=== PATIENT | female | born 1950 | race Caucasian/White ===

== ENCOUNTER 2017-12-20 13:52 | Outpatient (CLI) | payer MEDICARE, OTHER ==
--- NOTE | 2017-12-20 14:46 | RAD ---
TWO VIEWS OF THE CHEST: COMPARISON: None. HISTORY: Dyspnea. FINDINGS: Two views of the chest show a normal-size cardiomediastinal silhouette. The patient is status post C ABG. There is no evidence of consolidation, mass, or pleural effusion. Degenerative changes are see n in the spine. Bone anchors are seen in the right humerus. IMPRESSION: No evidence of acute cardiopulmonary disease. POS: [facility]
== END 2017-12-20 13:53 | disposition home or self-care (01) ==
LOC: RAD 13:52
PROVIDERS: ATTEND Internal Medicine Pulmonary Disease
DX: R06.00 Dyspnea, unspecified (principal)
CPT/HCPCS: 71046

== ENCOUNTER 2019-09-25 09:49 | Outpatient (CLI) | payer MEDICARE ==
--- NOTE | 2019-09-25 11:54 | BD ---
DEXA BONE DENSITY STUDY: Date: 09/25/2019 HISTORY: Postmenopausal. FINDINGS: Lumbar Spine: BMD (g/cm2) L1 0.766 T-Score: -2.0 L2 0.856 T-Score: -1.6 L3 1.076 T-Score: -0.1 L4 1.306 T-Score: +2.2 Total 0.997 T-Score: -0.5 Left Femoral Neck: 0.589 T-Score: -2.3 Total Femur: 0.733 T-Score: -1.7 IMPRESSION: 1. Osteopenia of the left femoral neck. Values border on the osteoporosis range. 2. Normal bone mineral density of the lumbar spine. 3. The 10 year fracture for major osteoporotic fracture is 16% and for a hip fracture is 4.1%. These fracture probabilities are calculated for an untreated patient. POS: [facility]
--- NOTE | 2019-09-25 12:00 | ULT ---
ABDOMINAL AORTIC ULTRASOUND: Date: 09/25/2019 HISTORY: Abdominal aortic aneurysm screening. FINDINGS: The abdominal aorta is normal in caliber. Proximal aorta measures 1.3 cm in AP dimension, mid aorta m easures 1.4 cm, and distal aorta measures 1.4 cm. Atherosclerotic change is noted. Iliac arteries are not well visualized due to gas. IMPRESSION: No evidence of aortic aneurysm. POS: [facility]
== END 2019-09-25 09:50 | disposition home or self-care (01) ==
LOC: BICMAMMO 09:49
PROVIDERS: ATTEND Internal Medicine
DX: Z13.820 Encounter for screening for osteoporosis (principal); Z13.6 Encounter for screening for cardiovascular disorders; N95.9 Unspecified menopausal and perimenopausal disorder; M85.89 Other specified disorders of bone density and structure, multiple sites
CPT/HCPCS: 76775; 77080

== ENCOUNTER 2021-07-04 11:06 | Outpatient (CLI) | payer MEDICARE | END 2021-07-04 11:07 | disposition home or self-care (01) | LOC: BICMAMMO 11:06 | PROVIDERS: ATTEND Internal Medicine | DX: Z12.31 Encounter for screening mammogram for malignant neoplasm of breast (principal); Z91.89 Other specified personal risk factors, not elsewhere classified | CPT/HCPCS: 77063; 77067 ==

== ENCOUNTER 2022-12-11 12:49 | Outpatient (CLI) | payer MEDICARE | END 2022-12-11 12:50 | disposition home or self-care (01) | LOC: BICMAMMO 12:49 | PROVIDERS: ATTEND Internal Medicine | DX: Z12.31 Encounter for screening mammogram for malignant neoplasm of breast (principal); Z78.0 Asymptomatic menopausal state; M81.0 Age-related osteoporosis without current pathological fracture | CPT/HCPCS: 77063; 77067; 77080 ==

== ENCOUNTER 2024-08-15 12:08 | Outpatient (CLI) | payer MEDICARE | END 2024-08-15 12:09 | disposition home or self-care (01) | LOC: BICMAMMO 12:08 | PROVIDERS: ATTEND Internal Medicine | DX: Z12.31 Encounter for screening mammogram for malignant neoplasm of breast (principal); N18.30 Chronic kidney disease, stage 3 unspecified | CPT/HCPCS: 76770; 77063; 77067 ==